=== PATIENT | female | born 1965 | race Asian ===

== ENCOUNTER 2020-01-22 13:22 | Emergency (ER) | payer OTHER ==
[2020-01-22] MEDS ORDERED: SODIUM CHLORIDE 0.9% 1000 ML IV SOLN IV ONE (14:28)
[2020-01-22] MEDS ORDERED: HYDROmorphone 1 MG/1 ML INJ IV STA (14:28)
[2020-01-22] MEDS ORDERED: ONDANSETRON 4 MG/2 ML INJ IV ONE (14:31)
--- NOTE | 2020-01-22 14:31 | Emergency Department Report ---
ED General Adult HPI - General Chief complaint: Extremity Problem,Nontraumatic Stated complaint: LT LEG PAIN PUI?: No Time Seen by Provider: 01/22/20 14:12 Source: patient, EMS, RN notes reviewed Mode of arrival: Stretcher Limitations: Physical Limitation - History of Present Illness Initial comments: The patient was evaluated in the emergency department for symptoms described in the history of present illness. He/she was evaluated in the context of the global COVID-19 pandemic, which necessitated consideration that the patient might be at risk for infection with the virus that causes COVID-19. Institutional protocols and algorithms that pertain to the evaluation of patients at risk for COVID-19 are in a state of rapid change based on information released by regulatory bodies including the CDC and federal and state organizations. These policies and algorithms were followed during the patient's care in the emergency department. Please note that these policies, procedures and recommendations changed on a rapid basis. The patient is a 54-year-old female. She typically follows at [facility]. She has a history of gastric bypass. She presents to the ER with a complaint of acute on chronic left lower extremity pain. She reports multiple hospitalizations this year, the first at [facility], and then [facility], last hospitalization was in October. She reports that she had infection of her left lower extremity, which required hospitalization, subsequent transfer to a [facility], and then subsequent transfer to the [facility], [facility]. She was discharged with home nursing care, and then presented today, with acute on chronic nontraumatic left lower extremity pain. She reports fever at home this morning and yesterday, temperature max 103 degrees. She reports that her insurance changed/ran out, and therefore, her last dressing of her left lower extremity was performed earlier on this week. She has had this dressing in place for the past few days. No complaint of headache, neck pain, chest pain, abdominal pain, shortness of breath. Positive nausea, no urinary symptoms, there is no loss of taste or smell. -: Sudden Location: left, lower extremity Quality: aching Consistency: constant Improves with: rest Worsens with: movement - Related Data Home Medications Medication Instructions Recorded Confirmed Last Taken Buprenorphine HCl [Belbuca] 75 mcg BC DAILY 01/22/20 01/22/20 Unknown Gabapentin [Neurontin] 100 mg PO Q8HR 01/22/20 01/22/20 Unknown Oxycodone HCl/Acetaminophen 1 each PO Q8HR 01/22/20 01/22/20 Unknown [Oxycodon-Acetaminophen 2.5-325] Sertraline [Zoloft] 100 mg PO QDAY 01/22/20 01/22/20 Unknown Previous Rx's Medication Instructions Recorded Last Taken Type Clindamycin [Clindamycin CAP] 300 mg PO Q6H #28 capsule 01/22/20 Unknown Rx Gabapentin 100 mg PO Q8HR #30 capsule 01/22/20 Unknown Rx oxyCODONE /ACETAMINOPHEN [Percocet 1 tab PO Q6HR PRN #10 tablet 01/22/20 Unknown Rx 5/325 mg] Allergies Allergy/AdvReac Type Severity Reaction Status Date / Time bacitracin AdvReac Swelling Verified 01/22/20 13:51 [From Neosporin ([id number])] erythromycin base AdvReac Hives Verified 01/22/20 13:51 [From Erythrocin] neomycin AdvReac Swelling Verified 01/22/20 13:51 [From Neosporin ([id number])] polymyxin B AdvReac Swelling Verified 01/22/20 13:51 [From Neosporin ([id number])] ED Review of Systems ROS: Stated complaint: LT LEG PAIN Other details as noted in HPI Constitutional: fever, malaise, weakness Eyes: denies: vision change ENT: denies: congestion Respiratory: denies: cough Cardiovascular: denies: chest pain Gastrointestinal: nausea, vomiting. denies: abdominal pain Genitourinary: denies: dysuria Musculoskeletal: arthralgia, myalgia Skin: lesions Neurological: weakness Psychiatric: anxiety ED Past Medical Hx - Past Medical History Previous Medical History?: No - Surgical History Past Surgical History?: Yes Additional Surgical History: gastric bypass. bowel obstruction - Social History Smoking Status: Current Some Day Smoker Substance Use Type: None - Medications Home Medications: Home Medications Medication Instructions Recorded Confirmed Last Taken Type Buprenorphine HCl [Belbuca] 75 mcg BC DAILY 01/22/20 01/22/20 Unknown History Clindamycin [Clindamycin CAP] 300 mg PO Q6H #28 capsule 01/22/20 Unknown Rx Gabapentin 100 mg PO Q8HR #30 capsule 01/22/20 Unknown Rx Gabapentin [Neurontin] 100 mg PO Q8HR 01/22/20 01/22/20 Unknown History Oxycodone HCl/Acetaminophen 1 each PO Q8HR 01/22/20 01/22/20 Unknown History [Oxycodon-Acetaminophen 2.5-325] Sertraline [Zoloft] 100 mg PO QDAY 01/22/20 01/22/20 Unknown History oxyCODONE /ACETAMINOPHEN [Percocet 1 tab PO Q6HR PRN #10 tablet 01/22/20 Unknown Rx 5/325 mg] ED Physical Exam - General Limitations: Physical Limitation General appearance: alert, anxious - Head Head exam: Present: atraumatic, normocephalic - Eye Eye exam: Present: normal appearance, EOMI. Absent: nystagmus - ENT ENT exam: Present: normal exam, normal orophraynx, mucous membranes moist, normal external ear exam - Neck Neck exam: Present: normal inspection, full ROM. Absent: tenderness, meningismus - Respiratory Respiratory exam: Present: normal lung sounds bilaterally. Absent: respiratory distress, wheezes, rales, rhonchi, stridor, decreased breath sounds - Cardiovascular Cardiovascular Exam: Present: regular rate, normal rhythm, normal heart sounds. Absent: bradycardia, tachycardia, irregular rhythm, systolic murmur, diastolic murmur, rubs, gallop - GI/Abdominal GI/Abdominal exam: Present: soft. Absent: distended, tenderness, guarding, rigid, pulsatile mass - Extremities Exam Extremities exam: Present: full ROM, tenderness (In the left lower extremity, there is diffuse skin maceration, and erythematous raw red tissue. this extends from the proximal calf, to the distal tibial region, and spares the ankle.), other (2+ pulses noted in the bilateral upper and lower extremities. There is no long bony tenderness. The muscular compartments are soft.). Absent: normal inspection - Back Exam Back exam: Present: normal inspection, full ROM. Absent: tenderness, CVA tenderness (R), CVA tenderness (L), paraspinal tenderness, vertebral tenderness - Neurological Exam Neurological exam: Present: alert, oriented X3, other (No facial droop. Tongue midline. Extraocular movements intact bilaterally. Facial sensation intact to light touch in V1, V2, V3 distribution bilaterally. 5 and a 5 strength in 4 extremities. Sensation intact to light touch in 4 extremities.). Absent: motor sensory deficit - Psychiatric Psychiatric exam: Present: anxious - Skin Skin exam: Present: warm, erythema ED Course Vital Signs 01/22/20 01/22/20 01/22/20 13:27 13:30 14:16 Temperature 98.7 F Pulse Rate 106 H 96 H Respiratory 13 17 Rate Blood Pressure 142/99 143/77 114/80 O2 Sat by Pulse 99 99 98 Oximetry 01/22/20 01/22/20 01/22/20 14:45 15:45 16:33 Temperature Pulse Rate 87 86 Respiratory 22 15 Rate Blood Pressure 128/90 117/90 117/90 O2 Sat by Pulse 97 98 99 Oximetry 01/22/20 17:30 Temperature Pulse Rate 81 Respiratory 14 Rate Blood Pressure 152/97 O2 Sat by Pulse 100 Oximetry - Reevaluation(s) Reevaluation #1: 01/22/20 15:48 Differential diagnosis, including but not limited to: Cellulitis, myositis, deep space infection, infected wounds Assessment and plan: 54-year-old female with acute on chronic wound infection, that arrives with dressing in place. I took off the dressing, and immediately observed copious amounts of purulent foul-smelling material. Nursing team to clean and irrigate the wound. We are attempting to obtain old medical records. Laboratory studies, x-ray of the left lower extremity, CT scan of the left lower extremity are pending. We will medicate patient empirically with clindamycin. I have placed a case management consultation, I am waiting for them to call back. 01/22/20 18:26 Patient is reassessed multiple times. She appears quite comfortable, and she has not spiked a fever. She has no active nausea or vomiting and is tolerating oral feeds. Her wound was cleaned, and she was seen by case management, who set her up for outpatient wound care. In addition, we do have a local wound care center where the patient can follow- up with. After being cleaned, and examining her wound, there did not appear to be significant superinfection. Her leukocytosis is appreciated, but given lack of fever, lack of lactic acidosis, ability to tolerate oral feeds, objective radiographic evidence and it demonstrates no deep space infection, cellulitis, myositis, osteomyelitis or abscess, patient is suitable for trial of oral outpatient management. She will be given an affordable prescription card. Return precautions are reviewed. Patient verbalizes understanding. ED Medical Decision Making - Lab Data Result diagrams: 01/22/20 15:06 01/22/20 15:06 Vital Signs 01/22/20 01/22/20 01/22/20 13:27 13:30 14:16 Temperature 98.7 F Pulse Rate 106 H 96 H Respiratory 13 17 Rate Blood Pressure 142/99 143/77 114/80 O2 Sat by Pulse 99 99 98 Oximetry 01/22/20 14:45 Temperature Pulse Rate 87 Respiratory 22 Rate Blood Pressure 128/90 O2 Sat by Pulse 97 Oximetry Lab Results 01/22/20 Range/Units 15:06 Sodium 139 (137-145) mmol/L Potassium 4.1 (3.6-5.0) mmol/L Chloride 104.8 (98-107) mmol/L Carbon Dioxide 21 L (22-30) mmol/L Anion Gap 17 mmol/L BUN 9 (7-17) mg/dL Glucose 95 (65-100) mg/dL Calcium 8.6 (8.4-10.2) mg/dL Total Bilirubin < 0.20 (0.1-1.2) mg/dL ALT 21 (7-56) units/L Alkaline Phosphatase 175 H (35-129) units/L Total Protein 6.6 (6.3-8.2) g/dL Albumin 3.6 L (3.9-5) g/dL Albumin/Globulin Ratio 1.2 % - EKG Data -: EKG Interpreted by Al EKG shows normal: sinus rhythm Rate: normal - EKG Data 01/22/20 15:49 This is a sinus rhythm, 89 bpm, there is a normal axis, the QTC is prolonged, t here is low voltage, and poor R wave progression. The EKG is not a STEMI. There is no prior for comparison. - Radiology Data Radiology results: report reviewed, image reviewed Print Report Referring Physician: GILMA GARCIA Patient Name: TAYLOR BEE Date of : 1965 Sex: Female Report Date: 2020-01-22 Report Status: Finalized Findings [facility] [address] [place] [address] XRay Report Signed Patient: TAYLOR BEE MR#: [id number] 0 : 1965 ct:[id number] Age/Sex: 54 / F ADM Date: 01/22/20 Loc: ED Attending Dr: Ordering Physician: GILMA GARCIA MD Date of Service: 01/22/20 Procedure(s): XR tibia fibula 2V LT Accession Number(s): [id number] cc: GILMA GARCIA MD Fluoro Time In Minutes: LEFT TIBIA AND FIBULA 2 VIEWS INDICATION / CLINICAL INFORMATION: lle pain COMPARISON: None available. FINDINGS: BONES / JOINT(S): No acute fracture or subluxation. Underlying osteopenia. No bony destruction. SOFT TISSUES: Diffuse soft tissue abnormality. ADDITIONAL FINDINGS: None. Signer Name: Casimiro Monterroso MD Signed: 01/22/2020 3:56 PM Workstation Name: [id number] Transcribed By: ES Dictated By: Casimiro Monterroso MD Electronically Authen ticated By: Casimiro Monterroso MD Signed Date/Time: 01/22/201555 DD/ 53 TD/TT: Print Report Referring Physician: GILMA GARCIA Patient Name: TAYLOR BEE Date of : 1965 Sex: Female Report Date: 2020-01-22 Report Status: [place] [address] Cat Scan Report Signed Patient: TAYLOR BEE MR#: [id number] 0 : 1965 Acct :[id number] Age/Sex: 54 / F ADM Date: 01/22/20 Loc: ED Attending Dr: Ordering Physician: GILMA GARCIA MD Date of Service: 01/22/20 Procedure(s): CT lower extremity LT w con Accession Number(s): [id number] cc: GILMA GARCIA MD CT LEFT TIBIA-FIBULA WITH CONTRAST INDICATION / CLINICAL INFORMATION: lower ext infection. TECHNIQUE: All CT scans at this location are performed using CT dose reduction for ALARA by means of automated exposure control. Axial CT images were obtained through the right lower leg after 100 mL Omnipaque 300 IV injection. COMPARISON: Radiographs dated 01/21/10 FINDINGS: BONES: No fracture. No osseous destruction. Small, nondisplaced osteochondral lesion of the anterior medial talar dome with no features to suggest instability. MUSCLES / TENDONS: No significant abnormality. SOFT TISSUES: Extensive skin thickening throughout the mid to distal left lower leg with areas of skin calcification. Mild subcutaneous soft tissue edema. No focal soft tissue fluid collection. VISUALIZED JOINTS: No joint effusion or intra-articular body of the ankle joint. ADDITIONAL FINDINGS: None. IMPRESSION: 1. Marked skin thickening of the mid to distal left lower leg extending to the ankle. No soft tissue abscess. No osteomyelitis. Signer Name: Christal Rocha MD Signed: 01/22/2020 5:36 PM Workstation Name: [id number] Transcribed By: DT Dictated By: Daniel Rocha MD Electronically Authenticated By: Daniel Rocha MD Signed Date/Time: 01/22/201735 DD/ 31 TD/TT: Critical care attestation.: If time is entered above; I have spent that time in minutes in the direct care of this critically ill patient, excluding procedure time. ED Disposition Clinical Impression: Case management patient Leg wound, left Qualifiers: Encounter type: initial encounter Qualified Code(s): S81.802A - Unspecified open wound, left lower leg, initial encounter Disposition: DC-01 TO HOME OR SELFCARE Is pt being admited?: No Does the pt Need Aspirin: No Condition: Stable Additional Instructions: Do not take metformin medication for the next 2 days, if patient takes this medication. Take the pain medication as needed, antibiotics as directed. Continue outpatient medications otherwise. We recommend follow-up with our wound care center or wound surgeon, Dr. Cummins, within the next 3 to 5 days. Patient should be receiving home wound care 3 days a week. It is very important to follow-up with an outpatient wound care/wound surgeon for chronic wound care. Please return to the emergency room right away with new pain, worsening pain, migration of pain, projectile vomiting, change in mental status, confusion, inability to tolerate liquid feeds, new, worsened or different symptoms not present on the initial emergency room evaluation. Cultures were sent today, and results will available in the next 3 to 5 days. Please have a primary care doctor contact the medical records department to obtain culture results. Prescriptions: Clindamycin [Clindamycin CAP] 300 mg PO Q6H #28 capsule Gabapentin 100 mg PO Q8HR #30 capsule oxyCODONE /ACETAMINOPHEN [Percocet 5/325 mg] 1 tab PO Q6HR PRN #10 tablet PRN Reason: Pain Referrals: PRIMARY CARE, [Primary Care Provider] - 3-5 Days BEV CUMMINS MD [Staff Physician] - 3-5 Days [facility] [Outside] - 3-5 Days
[2020-01-22] MEDS ORDERED: CLINDAMYCIN 600 MG/50 mL 600 MG/50 ML BAG IV SCH (15:00)
[2020-01-22 15:39] LABS: Hemoglobin 10.5 gm/dl (10.1-14.3); Mean Corpuscular HGB Conc 32 % (30-34); Mean Corpuscular Volume 86 fl (79-97); Platelet Count 541 K/mm3 (140-440); Red Blood Count 3.85 M/mm3 (3.65-5.03); Red Cell Distribution Width 18.9 % (13.2-15.2)
[2020-01-22 15:42] LABS: Alanine Aminotransferase 21 units/L (7-56); Albumin 3.6 g/dL (3.9-5); Blood Urea Nitrogen 9 mg/dL (7-17); Calcium 8.6 mg/dL (8.4-10.2); Hemolysis Index 44
[2020-01-22 15:49] LABS: BUN/Creatinine Ratio 15
--- NOTE | 2020-01-22 16:00 | XRay Report ---
LEFT TIBIA AND FIBULA 2 VIEWS INDICATION / CLINICAL INFORMATION: lle pain COMPARISON: None available. FINDINGS: BONES / JOINT(S): No acute fracture or subluxation. Underlying osteopenia. No bony destruction. SOFT TISSUES: Diffuse soft tissue abnormality. ADDITIONAL FINDINGS: None. Signer Name: Casimiro Monterroso MD Signed: 01/22/2020 3:56 PM Workstation Name: [id number]
[2020-01-22] MEDS ORDERED: MUPIROCIN 2% OINT 22 GM TP ONE (16:40)
[2020-01-22] MEDS ORDERED: MORPHINE 15 MG ER TAB PO ONE (16:40)
[2020-01-22] MEDS ORDERED: KETOROLAC 30 MG/1 ML INJ IV ONE (16:40)
[2020-01-22 17:03] LABS: Band Neutrophils # (Manual) 0.3 K/mm3; Basophils % (Manual) 0 % (0.0-1.8); Eosinophils % (Manual) 0 % (0.0-4.3); Total Cells Counted 100
[2020-01-22 17:04] LABS: Ovalocytes Rare; Platelet Estimate Consistent w Auto; Tear Drop Cells Rare
[2020-01-22] MEDS ORDERED: HYDROmorphone 1 MG/1 ML INJ IV ONE (17:32)
--- NOTE | 2020-01-22 17:40 | Cat Scan Report ---
CT LEFT TIBIA-FIBULA WITH CONTRAST INDICATION / CLINICAL INFORMATION: lower ext infection. TECHNIQUE: All CT scans at this location are performed using CT dose reduction for ALARA by means of automated e xposure control. Axial CT images were obtained through the right lower leg after 100 mL Omnipaque 300 IV injection. COMPARISON: Radiographs dated 01/21/10 FINDINGS: BONES: No fracture. No osseous destruction. Small, nondisplaced osteochondral lesion of the anterior medial talar dome with no features to suggest instability. MUSCLES / TENDONS: No significant abnormality. SOFT TISSUES: Extensive skin thickening throughout the mid to distal left lower leg with areas of ski n calcification. Mild subcutaneous soft tissue edema. No focal soft tissue fluid collection. VISUALIZED JOINTS: No joint effusion or intra-articular body of the ankle joint. ADDITIONAL FINDINGS: None. IMPRESSION: 1. Marked skin thickening of the mid to distal left lower leg extending to the ankle. No soft tissue abscess. No osteomyelitis. Signer Name: Christal Rocha MD Signed: 01/22/2020 5:36 PM Workstation Name: [id number]
[2020-01-22 18:57] LABS: Bacteria,Urine 2+ /HPF (Negative); Bilirubin,Urine NEG (Negative); Blood,Urine NEG (Negative); Color,Urine Straw (Yellow); Mucus,Urine FEW /HPF; Protein,Urine <15 mg/dL mg/dL (Negative); Urobilinogen,Urine < 2.0 mg/dL (<2.0)
[2020-01-22 19:02] LABS: RBC,Urine < 1.0 /HPF (0.0-6.0)
[2020-01-22 19:52] VITALS: BP 132/94
== END 2020-01-22 19:52 | disposition home or self-care (01) ==
LOC: ED 13:22
DX: S81.802A Unspecified open wound, left lower leg, initial encounter (principal); F17.200 Nicotine dependence, unspecified, uncomplicated; Z98.890 Other specified postprocedural states; Z79.2 Long term (current) use of antibiotics; Z79.899 Other long term (current) drug therapy; Z88.1 Allergy status to other antibiotic agents; Z88.8 Allergy status to other drugs, medicaments and biological substances; X58.XXXA Exposure to other specified factors, initial encounter; Y93.89 Activity, other specified; Y92.89 Other specified places as the place of occurrence of the external cause; Y99.8 Other external cause status
CPT/HCPCS: 36415; 73590; 73701; 80053; 81001; 82140; 82550; 83735; 85007; 85025; 85730; 87040; 93005; 96365; 96375; 96376; 99285; J1170; J1885; J2405; J7030; Q9967